=== PATIENT | male | born 1935 | race Caucasian/White ===

== ENCOUNTER 2016-11-18 19:33 | Inpatient (IN) | payer OTHER, MEDICAID ==
--- NOTE | 2016-11-18 19:46 | CPEKG ---
Heart Rate: 62 RR Interval: 968 P-R Interval: 160 QRSD Interval: 82 QT Interval: 456 QTC Interval: 463 P Eros: -34 QRS Eros: 179 T Wave Eros: 63 EKG Severity - ABNORMAL ECG - EKG Impression: SINUS RHYTHM EKG Impression: LOW VOLTAGE IN FRONTAL LEADS EKG Impression: PROBABLE RIGHT VENTRICULAR HYPERTROPHY EKG Impression: similar to previous Electronically Signed By: Baron Bond 18-Nov-2016 19:48:58
[2016-11-18] MEDS ORDERED: IPRATROPIUM/ALBUTEROL 3 ML DEYVIAL IH ONE ×2 (19:53→22:47)
--- NOTE | 2016-11-18 19:53 | EDPHY ---
H & P Time Seen by Provider: 11/18/16 19:38 HPI/ROS: CHIEF COMPLAINT: Fainting spells HISTORY OF PRESENT ILLNESS: Patient is an 80-year-old man who is brought by EMS from [facility] for what are described as fainting spells. Paramedics state that earlier this afternoon he was found to have a low blood glucose of 40 and so they have been treating this throughout the day. It has been in the normal range however over the last few hours he has multiple times become unconscious while lying in bed and been unresponsive for about a minute or 2. No seizure-like activity. No history of seizures. The patient does not remember these episodes and states that he is asymptomatic. He denies having any pain. He denies shortness of breath. He denies nausea vomiting or diarrhea or recent illness. Paramedics state that they did witness 1 of these episodes. His pulse did not change during it. His vital signs remained stable. 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 REVIEW OF SYSTEMS: Constitutional: denies: chills, fever, recent illness, recent injury EENTM: denies: blurred vision, double vision, nose congestion Respiratory: denies: cough, shortness of breath Cardiac: denies: chest pain, irregular heart rate, lightheadedness, palpitations Gastrointestinal/Abdominal: denies: abdominal pain, diarrhea, nausea, vomiting, blood streaked stools Genitourinary: denies: dysuria, frequency, hematuria, pain Musculoskeletal: denies: joint pain, muscle pain Skin: denies: lesions, rash, jaundice, bruising Neurological: denies: headache, numbness, paresthesia, tingling, dizziness, weakness Hematologic/Lymphatic: denies: blood clots, easy bleeding, easy bruising Immunologic/allergic: denies: HIV/AIDS, transplant EXAM: GENERAL: Well-appearing, well-nourished and in no acute distress. Hard of hearing HEAD: Atraumatic, normocephalic. EYES: Pupils equal round and reactive to light, extraocular movements intact, sclera anicteric, conjunctiva are normal. ENT: TMs normal, nares patent, oropharynx clear without exudates. Moist mucous membranes. NECK: Normal range of motion, supple without lymphadenopathy or JVD. LUNGS: Mild rhonchi in left lower lobe posteriorly, wheezing anteriorly. HEART: Regular rate and rhythm without murmurs, rubs or gallops. ABDOMEN: Soft, nontender, normoactive bowel sounds. No guarding, no rebound. No masses appreciated. BACK: No CVA tenderness, no spinal tenderness, step-offs or deformities EXTREMITIES: Left [id number] amputation, no pain or deformity. No significant edema. No rashes or erythema NEUROLOGICAL: Cranial nerves II through XII grossly intact. Normal speech, normal gait. 5/5 strength, normal movement in all extremities, normal sensation PSYCH: Normal mood, normal affect. SKIN: Warm, dry, normal turgor, no visible rashes or lesions. Source: Patient Exam Limitations: No limitations - Personal History Tetanus Vaccine Date: WITHIN LAST 10 YEARS - Medical/Surgical History Hx Asthma: No Hx Chronic Respiratory Disease: No Hx Diabetes: Yes Hx Cardiac Disease: Yes Hx Renal Disease: Yes Hx Cirrhosis: No Hx Alcoholism: No Hx HIV/AIDS: No Hx Splenectomy or Spleen Trauma: No Other PMH: CVA, Angina, COPD, DM, Cataract, Dementia - Family History Significant Family History: No pertinent family hx - Social History Smoking Status: Former smoker Alcohol Use: Sober Drug Use: None Constitutional: Initial Vital Signs Temperature (C) 36.6 C 11/18/16 19:35 Heart Rate 69 11/18/16 19:35 Respiratory Rate 18 11/18/16 19:35 Blood Pressure 113/81 H 11/18/16 19:35 O2 Sat (%) 94 11/18/16 19:35 O2 Delivery Mode Nasal Cannula O2 (L/minute) 2 Allergies/Adverse Reactions: No Known Allergies Allergy (Unverified 11/18/16 20:38) Home Medications: Medication Instructions Recorded ARICEPT 05/03/10 COZAAR 05/03/10 Cartia 05/03/10 GLUCOSAMINE HCL 05/03/10 HUMALOG 05/03/10 IMODIUM A-D 05/03/10 LEXAPRO 05/03/10 Lantus 05/03/10 Lipitor 10 mg 05/03/10 METFORMIN HCL 05/03/10 NEXIUM 05/03/10 Namenda 05/03/10 PERCOCET 2.5-325 MG TABLET 05/03/10 PRESERVISION SOFTGEL 05/03/10 Starkix 05/03/10 Aspirin [Aspirin 81mg] 81 mg PO DAILY 10/15/10 CHOLECALCIFEROL [Vitamin D] 1,000 unit PO 10/15/10 Claritin PRN PRN 10/15/10 DILTIAZEM HCL [Cardizem Cd] 180 mg PO 10/15/10 Gabapentin [Neurontin] 300 mg PO 10/15/10 METOCLOPRAMIDE HCL 10 mg PO PRN PRN 10/15/10 METOPROLOL TARTRATE 25 10/15/10 MULTI-DAY VITAMINS 10/15/10 NITROGLYCERIN 0.4 mg 10/15/10 Oscal D 500 10/15/10 Psyllium Seed [Metamucil] 5.85 gm PO DAILY 10/15/10 VITAMIN B COMPLEX 10/15/10 diphenhydrAMINE [Benadryl] 25 mg PO PRN PRN 10/15/10 Atorvastatin Calcium [Lipitor 40 40 mg PO DAILY 04/20/13 mg (RX)] Clopidogrel Bisulfate [Plavix (RX)] 75 mg PO DAILY 04/20/13 Diltiazem Cd [Cardizem ER 120 MG 240 mg PO DAILY 04/20/13 (RX)] Donepezil HCl 10 mg PO DAILY 04/20/13 ESCITALOPRAM OXALATE [Lexapro] 40 mg PO DAILY 04/20/13 Fish Oil/Dha/Epa [Fish Oil 1,200 2 each PO BID 04/20/13 mg Fish Oil] Furosemide [Lasix 20 MG (RX)] 20 mg PO 04/20/13 Gabapentin 300 mg PO BID 04/20/13 Insulin Glargine,Hum.rec.anlog 100 unit SQ BID 04/20/13 [Lantus] Insulin Lispro [Humalog] 90 - 100 unit SQ TID 04/20/13 Loperamide HCl [Imodium A-D] 2 mg PO TID 04/20/13 Magnesium 250 mg PO DAILY 04/20/13 Memantine HCl [Namenda 10 mg] 10 mg PO BID 04/20/13 Nitroglycerin [Nitrostat 0.4 mg 0.4 mg SL PRN PRN 04/20/13 (RX)] Oxycodone HCl [Oxyir] 5 mg PO Q4 PRN 04/20/13 Pantoprazole Sodium [Protonix 40mg 40 mg PO BID 04/20/13 (RX)] diphenhydrAMINE [Benadryl 50 MG 50 mg PO BID 04/20/13 (OTC)] Calcium Carbonate/Vitamin D3 1 tab PO DAILY10 04/21/13 [Os-Saurabh 500+D Caplet] Cholecalciferol (Vitamin D3) 10,000 - 20,000 unit PO DAILY10 04/21/13 [Vitamin D3] Famotidine [Pepcid 20 MG (OTC)] 20 mg PO DAILY 04/21/13 Gluc HCl/Csa/Hao Hy/Hyalur AC 3 cap PO BID 04/21/13 [Glucosamine Chondroitin Cap] Pharmacy Completed 04/21/13 04/21/13 Reconciled04/2104/21/13 Vit C/Dl-E AC/Lut/Copper/Znox 1 cap PO BID 04/21/13 [Preservision Softgel] Medical Decision Making - Diagnostics EKG Interpretation: An EKG obtained and was read and documented in trace view. Please see trace view for full reading and report. Sinus rhythm, no acute ischemic changes, similar to previous Imaging: X-ray: chest x-ray was obtained. I viewed the images myself on the PACS system. My interpretation of the images is: Left lower lobe infiltrate. The radiologist interpretation is pending. ED Course/Re-evaluation: 8:40 p.m. we discussed the patient's x-ray results. I will admit him for severe sepsis and pneumonia. I have started Levaquin. I discussed the case with Dr. Gunnar Ruffin who agrees. He has no history of CHF according to the medical records or according to the patient. He is not hypotensive or in septic shock. Differential Diagnosis: Partial list of the Differential diagnosis considered include but were not limited to; sepsis, pneumonia, COPD exacerbation and although unlikely based on the history and physical exam, I also considered CHF, acute coronary disease , CVA. Critical Care Time: I spent a total of 35 minutes of critical care time in obtaining history, performing a physical exam, bedside monitoring of interventions, collecting and interpreting tests and discussion with consultants but not including time spent performing procedures. - Data Points Laboratory Results: Laboratory Results 11/18/16 19:51 11/18/16 19:51 11/18/16 11/18/16 20:15 19:51 WBC 8.53 10^3/uL (3.80-9.50) RBC 4.72 10^6/uL (4.40-6.38) Hgb 14.5 g/dL (13.7-17.5) Hct 43.9 % (40.0-51.0) MCV 93.0 fL (81.5-99.8) MCH 30.7 pg (27.9-34.1) MCHC 33.0 g/dL (32.4-36.7) RDW 12.8 % (11.5-15.2) Plt Count 144 L 10^3/uL (150-400) MPV 9.0 fL (8.7-11.7) Neut % (Auto) 84.2 H % (39.3-74.2) Lymph % (Auto) 6.9 L % (15.0-45.0) [place] % (Auto) 7.9 % (4.5-13.0) Eos % (Auto) 0.0 L % (0.6-7.6) Baso % (Auto) 0.4 % (0.3-1.7) Nucleat RBC Rel Count 0.0 % (0.0-0.2) Absolute Neuts (auto) 7.19 H 10^3/uL (1.70-6.50) Absolute Lymphs (auto) 0.59 L 10^3/uL (1.00-3.00) Absolute Monos (auto) 0.67 10^3/uL (0.30-0.80) Absolute Eos (auto) 0.00 L 10^3/uL (0.03-0.40) Absolute Basos (auto) 0.03 10^3/uL (0.02-0.10) Absolute Nucleated RBC 0.00 10^3/uL (0-0.01) Immature Gran % 0.6 % (0.0-1.1) Immature Gran # 0.05 10^3/uL (0.00-0.10) PT 14.7 SEC (12.0-15.0) INR 1.15 (0.83-1.16) APTT 28.7 SEC (23.0-38.0) VBG Lactic Acid 3.3 H mmol/L (0.7-2.1) Sodium 138 mEq/L (134-144) Potassium 4.6 mEq/L (3.5-5.2) Chloride 95 L mEq/L (97-110) Carbon Dioxide 31 mEq/l (22-31) Anion Gap 12 mEq/L (8-16) BUN 28 H mg/dL (7-23) Creatinine 1.6 H mg/dL (0.7-1.3) Estimated GFR 42 Glucose 220 H mg/dL (70-100) Calcium 8.3 L mg/dL (8.5-10.4) Total Bilirubin 0.5 mg/dL (0.1-1.4) Medications Given: Discontinued Medications Albuterol/Ipratropium (Duoneb) 3 ml IH EDNOW ONE Stop: 11/18/16 19:54 Last Admin: 11/18/16 20:16 Dose: 3 ml Sodium Chloride (Ns *For Sepsis Order Set Only*) 2,722 ml IV EDNOW ONE Stop: 11/18/16 20:25 Last Admin: 11/18/16 20:45 Dose: 2,722 ml Departure - Departure Disposition: [facility] Inpatient Acute Clinical Impression: Sepsis Qualifiers: Sepsis type: sepsis due to unspecified organism Qualifier Code: (A41.9) Sepsis , unspecified organism Pneumonia Qualifiers: Pneumonia type: due to unspecified organism Laterality: left Lung location: lower lobe of lung Qualifier Code: (J18.1) Lobar pneumonia, unspecified organism Condition: Fair
[2016-11-18 20:00] LABS: % IMMATURE GRANULYOCYTES 0.6 % (0.0-1.1); ABSOLUTE IMMATURE GRANULOCYTES 0.05 10^3/uL (0.00-0.10); ADD DIFF? NO; ADD MORPH? NO; ADD SCAN? NO; ATYPICAL LYMPHOCYTE FLAG 10 (0-99); FRAGMENT RBC FLAG 0 (0-99); HEMATOCRIT 43.9 % (40.0-51.0); HEMOGLOBIN 14.5 g/dL (13.7-17.5); LEFT SHIFT FLG 0 (0-99); LIPEMIA HEMOLYSIS FLAG 80 (0-99); MEAN CELL HEMOGLOBIN 30.7 pg (27.9-34.1); PLATELET CLUMPS FLAG 0 (0-99); PLATELET COUNT 144 10^3/uL (150-400); RED BLOOD CELL COUNT 4.72 10^6/uL (4.40-6.38); RED CELL DISTRIBUTION WIDTH 12.8 % (11.5-15.2)
[2016-11-18 20:04] LABS: INR 1.15 (0.83-1.16); PROTIME(PATIENT) 14.7 SEC (12.0-15.0)
[2016-11-18 20:05] LABS: ANION GAP 12 mEq/L (8-16); APTT 28.7 SEC (23.0-38.0); BILIRUBIN,TOTAL 0.5 mg/dL (0.1-1.4); CALCIUM 8.3 mg/dL (8.5-10.4); CARBON DIOXIDE 31 mEq/l (22-31); CHLORIDE 95 mEq/L (97-110); CREATININE 1.6 mg/dL (0.7-1.3); GLOMERULAR FILTRATION RATE 42; GLUCOSE 220 mg/dL (70-100); POTASSIUM 4.6 mEq/L (3.5-5.2); SODIUM 138 mEq/L (134-144)
[2016-11-18] MEDS ORDERED: NS 1,000 ML BAG *FOR SEPSIS ORDER SET ONLY IV ONE (20:24)
[2016-11-18 21:09] LABS: COLOR YELLOW; LEUKOCYTE ESTERASE,URINE NEGATIVE (NEGATIVE); NITRITE,URINE NEGATIVE (NEGATIVE)
[2016-11-18 21:16] LABS: MUCUS TRACE /lpf (NONE-1+)
[2016-11-18 21:18] LABS: LACGHOST ORDER
[2016-11-18 21:18] LABS: RBC,URINE NONE SEEN /hpf (0-3)
--- NOTE | 2016-11-18 21:49 | DX ---
Portable Chest November 18, 2016 at 2030 hours Clinical Indications: Shortness of breath in an 80-year-old male; comparison April 23, 2013. Findings: The heart remains enlarged. The pulmonary vascularity is normal. There is prominent elev ation of the right hemidiaphragm. No focal pulmonary consolidation is identified. Pleural surfaces and bony thorax are negative for acute abnormality. Prominent degenerative changes are seen involvin g the left shoulder. Impressions 1. Cardiac enlargement, without pulmonary edema. 2. Other findings, as detailed above, without significant change from 2012.
[2016-11-18] MEDS ORDERED: ONDANSETRON 4 MG/2 ML VIAL IVP PRN (23:22)
[2016-11-18] MEDS ORDERED: ONDANSETRON DISINTEGRATING 4 MG TAB PO PRN (23:22)
[2016-11-18] MEDS ORDERED: oxyCODONE IR 5 MG TAB PO PRN ×2 (23:22→23:26)
[2016-11-18] MEDS ORDERED: ALBUTEROL 3 ML DEYVIAL IH PRN (23:22)
[2016-11-18] MEDS ORDERED: ACETAMINOPHEN 325 MG TAB PO PRN ×2 (23:22→23:26)
[2016-11-18] MEDS ORDERED: D50W 25 GM/50 ML SYR IVP PRN (23:25)
[2016-11-18] MEDS ORDERED: BISACODYL 10 MG SUPP PR PRN (23:26)
[2016-11-18] MEDS ORDERED: SENNOSIDES/DOCUSATE SODIUM TAB PO PRN (23:26)
[2016-11-18] MEDS ORDERED: GUAIFENESIN/DM 10 ML UDCUP PO PRN (23:26)
[2016-11-18] MEDS ORDERED: LORazepam 0.5 MG TAB PO PRN (23:26)
[2016-11-18] MEDS ORDERED: NYSTATIN POWDER 15 GM BTL TP PRN (23:26)
[2016-11-18] MEDS ORDERED: MAGNESIUM HYDROXIDE 30 ML UDCUP PO PRN (23:26)
[2016-11-18] MEDS ORDERED: guaiFENesin 600 MG TAB.ER PO PRN (23:26)
[2016-11-18] MEDS ORDERED: SODIUM CHLORIDE EACHNARE PRN (23:26)
[2016-11-18] MEDS ORDERED: [UNRECOGNIZED DRUG - OTHER] EACHNARE PRN (23:26)
[2016-11-18] MEDS ORDERED: ERGOCALCIFEROL 50,000 I.UNIT CAP PO SCH (23:30)
[2016-11-18] MEDS ORDERED: ATORVASTATIN CALCIUM 20 MG TAB PO SCH (23:30)
[2016-11-18] MEDS ORDERED: INSULIN GLARGINE 100 UNITS/ML SYRINGE SC SCH (23:30)
[2016-11-18] MEDS ORDERED: DONEPEZIL HCL 5 MG TAB PO SCH (23:45)
[2016-11-19] MEDS: CARBOXYMETHYLCELLULOSE 1% 0.4 ML DROPERETTE LEFTEYE SCH ×2 (00:39→08:31)
[2016-11-19] MEDS: ALBUTEROL 3 ML DEYVIAL IH SCH ×2 (00:39→08:31)
[2016-11-19] MEDS: GABAPENTIN 400 MG CAP PO SCH ×2 (00:39→08:32)
[2016-11-19] MEDS ORDERED: IPRATROPIUM/ALBUTEROL 3 ML DEYVIAL IH SCH (06:00)
[2016-11-19] MEDS ORDERED: HEPARIN 5,000 UNIT/0.5 ML SYR SC SCH (06:00)
--- NOTE | 2016-11-19 06:02 | PDGENHP ---
History and Physical - Chief Complaint syncope - History of Present Illness 80 yo M with hx of CVA, CAD and dementia with very poor memory admitted from [place] where report is that he was having episodes of syncope and hypoglycemia. Patient himself does not recall these episodes and has no idea why he is in the hospital. He states he feels fine, denies pain, sob, syncope. He does complain that his bed sore is bothering him but can't tell me more about that. Per report from [facility], he was having low blood sugar throughout the day and multiple episodes of syncope versus unresponsiveness while in bed. He was worked up in the ER and concerns were for pneumonia and sepsis. He was noted to have a productive cough while being evaluated, but was not able to give me any more details about that either. History Information - Allergies/Home Medication List Allergies/Adverse Reactions: No Known Allergies Allergy (Unverified 11/18/16 20:38) Home Medications: Acetaminophen [Tylenol 325mg (*)] 650 mg PO Q4H PRN 11/18/16 [Last Taken Unknown ] Albuterol [Proventil Neb] 3 ml IH Q4H PRN 11/18/16 [Last Taken Unknown] Albuterol [Proventil Neb] 3 ml IH TID 11/18/16 [Last Taken Unknown] Aspirin [Aspirin 81mg (*)] 81 mg PO DAILY 11/18/16 [Last Taken Unknown] Atorvastatin Calcium [Lipitor 20 mg (*)] 20 mg PO HS 11/18/16 [Last Taken Unknown] Bisacodyl [Dulcolax] 10 mg RC DAILY PRN 11/18/16 [Last Taken Unknown] Calcium Carbonate [Tums 500MG (*)] 500 mg PO DAILY 11/18/16 [Last Taken Unknown] Carboxymethylcellulose 1% [Refresh Celluvisc (*)] 2 drops LEFTEYE BID 11/18/16 [ Last Taken Unknown] Clopidogrel Bisulfate [Clopidogrel] 75 mg PO DAILY 11/18/16 [Last Taken Unknown] Diltiazem Cd [Cardizem ER 120 MG (*)] 240 mg PO DAILY 11/18/16 [Last Taken Unknown] Donepezil HCl [Aricept] 10 mg PO HS 11/18/16 [Last Taken Unknown] Ergocalciferol (Vitamin D2) [Vitamin D2] 50,000 unit PO Q30D 11/18/16 [Last Taken 11/09/16] Escitalopram Oxalate [Lexapro] 20 mg PO DAILY 11/18/16 [Last Taken Unknown] Fluticasone Nasal [Flonase Nasal [place] (RX)] 2 sprays NASAL DAILY 11/18/16 [ Last Taken Unknown] Gabapentin [Neurontin 400 MG (*)] 400 mg PO TID 11/18/16 [Last Taken Unknown] Insulin Glargine [Lantus 100 UNITS/ML (*)] 30 units SC HS 11/18/16 [Last Taken Unknown] Insulin Glargine [Lantus 100 UNITS/ML (*)] 65 units SC DAILY 11/18/16 [Last Taken Unknown] Insulin Lispro [humALOG LISPRO 100 units/ml (*)] 20 unit SC TIDMEAL 11/18/16 [ Last Taken Unknown] LORazepam [Ativan (*)] 0.5 mg PO Q6H PRN 11/18/16 [Last Taken Unknown] Lisinopril [Zestril 5 mg (*)] 5 mg PO DAILY 11/18/16 [Last Taken Unknown] Magnesium Hydroxide [Milk of Magnesia] 30 ml PO BID PRN 11/18/16 [Last Taken Unknown] Metoprolol Tartrate [Lopressor 25 mg (*)] 12.5 mg PO BID 11/18/16 [Last Taken Unknown] Miconazole Nitrate [Micatin 2% Cream (*)] 1 nathen TP TID 11/18/16 [Last Taken Unknown] Nitroglycerin [Nitrostat 0.4 mg (*)] 0.4 mg SL Q5M PRN 11/18/16 [Last Taken Unknown] Nystatin Powder [Mycostatin Powder (RX)] 1 nathen TOP BID PRN 11/18/16 [Last Taken Unknown] Nystatin Powder [Mycostatin Powder (RX)] 1 nathen TOP Q24H PRN 11/18/16 [Last Taken Unknown] Omeprazole [Prilosec 20 mg] 20 mg PO DAILY 11/18/16 [Last Taken Unknown] Sennosides/Docusate Sodium [SENEXON-S TABLET] 1 each PO Q12H PRN 11/18/16 [Last Taken Unknown] Sodium Chloride [Saline Nasal Mist] 2 spray EACHNARE QID PRN 11/18/16 [Last Taken Unknown] guaiFENesin [Mucinex 600 MG (*)] 600 mg PO BID PRN 11/18/16 [Last Taken Unknown] guaiFENesin/DEXTROMETHORPHAN [Robitussin Dm Oral Liquid (*)] 15 ml PO Q6H PRN [Last Taken Unknown] oxyCODONE IR [Oxycodone Ir (*)] 20 mg PO Q6H PRN 11/18/16 [Last Taken Unknown] I have personally reviewed and updated: family history, medical history, social history, surgical history - Past Medical History coronary artery disease, CVA (with residual left upper extremity weakness), dementia, diabetes type 2, hypertension, hyperlipidemia Additional medical history: peripheral neuropathy. Charcot foot. hemochromatosis - Surgical History Reports: amputation (left bka for charcot foot) - Family History Positive for: non-pertinent - Social History Smoking Status: Former smoker Alcohol Use: Sober Drug Use: None Additional social history: residing at [facility] Review of Systems ROS: 10pt was reviewed & negative except for what was stated in HPI & below ( limited by patients dementia) Physical Exam Temp Pulse Resp BP Pulse Ox 36.7 C 76 18 136/72 H 94 11/19/16 01:23 11/19/16 04:00 11/19/16 04:00 11/19/16 04:00 11/19/16 04:00 O2 (L/minute) 2 Constitutional: no apparent distress, obese, unkempt Eyes: PERRL, anicteric sclera Ears, Nose, Mouth, Throat: moist mucous membranes, hearing normal Cardiovascular: regular rate and rhythym, no murmur, rub, or gallop, No edema Respiratory: no respiratory distress, inspiratory crackles, bronchial breath sounds Gastrointestinal: normoactive bowel sounds, soft, non-tender abdomen Skin: warm, normal color Musculoskeletal: no muscle tenderness, generalized weakness Neurologic: CN II-XII Intact, No AAOx3 Psychiatric: interacting appropriately, not anxious, poor memory Lab Data & Imaging Review 11/18/16 19:51 11/18/16 19:51 WBC 8.53 10^3/uL (3.80-9.50) 11/18/16 19:51 RBC 4.72 10^6/uL (4.40-6.38) 11/18/16 19:51 Hgb 14.5 g/dL (13.7-17.5) 11/18/16 19:51 Hct 43.9 % (40.0-51.0) 11/18/16 19:51 MCV 93.0 fL (81.5-99.8) 11/18/16 19:51 MCH 30.7 pg (27.9-34.1) 11/18/16 19:51 MCHC 33.0 g/dL (32.4-36.7) 11/18/16 19:51 RDW 12.8 % (11.5-15.2) 11/18/16 19:51 Plt Count 144 10^3/uL (150-400) L 11/18/16 19:51 MPV 9.0 fL (8.7-11.7) 11/18/16 19:51 Neut % (Auto) 84.2 % (39.3-74.2) H 11/18/16 19:51 Lymph % (Auto) 6.9 % (15.0-45.0) L 11/18/16 19:51 [place] % (Auto) 7.9 % (4.5-13.0) 11/18/16 19:51 Eos % (Auto) 0.0 % (0.6-7.6) L 11/18/16 19:51 Baso % (Auto) 0.4 % (0.3-1.7) 11/18/16 19:51 Nucleat RBC Rel Count 0.0 % (0.0-0.2) 11/18/16 19:51 Absolute Neuts (auto) 7.19 10^3/uL (1.70-6.50) H 11/18/16 19:51 Absolute Lymphs (auto) 0.59 10^3/uL (1.00-3.00) L 11/18/16 19:51 Absolute Monos (auto) 0.67 10^3/uL (0.30-0.80) 11/18/16 19:51 Absolute Eos (auto) 0.00 10^3/uL (0.03-0.40) L 11/18/16 19:51 Absolute Basos (auto) 0.03 10^3/uL (0.02-0.10) 11/18/16 19:51 Absolute Nucleated RBC 0.00 10^3/uL (0-0.01) 11/18/16 19:51 Immature Gran % 0.6 % (0.0-1.1) 11/18/16 19:51 Immature Gran # 0.05 10^3/uL (0.00-0.10) 11/18/16 19:51 PT 14.7 SEC (12.0-15.0) 11/18/16 19:51 INR 1.15 (0.83-1.16) 11/18/16 19:51 APTT 28.7 SEC (23.0-38.0) 11/18/16 19:51 VBG Lactic Acid 2.3 mmol/L (0.7-2.1) H 11/18/16 21:31 Sodium 138 mEq/L (134-144) 11/18/16 19:51 Potassium 4.6 mEq/L (3.5-5.2) 11/18/16 19:51 Chloride 95 mEq/L (97-110) L 11/18/16 19:51 Carbon Dioxide 31 mEq/l (22-31) 11/18/16 19:51 Anion Gap 12 mEq/L (8-16) 11/18/16 19:51 BUN 28 mg/dL (7-23) H 11/18/16 19:51 Creatinine 1.6 mg/dL (0.7-1.3) H 11/18/16 19:51 Estimated GFR 42 11/18/16 19:51 Glucose 220 mg/dL (70-100) H 11/18/16 19:51 POC Glucose 175 mg/dL (70-100) H 11/18/16 23:56 Calcium 8.3 mg/dL (8.5-10.4) L 11/18/16 19:51 Total Bilirubin 0.5 mg/dL (0.1-1.4) 11/18/16 19:51 Urine Color YELLOW 11/18/16 21:00 Urine Appearance HAZY 11/18/16 21:00 Urine pH 5.0 (5.0-7.5) 11/18/16 21:00 Ur Specific [place] 1.021 (1.002-1.030) 11/18/16 21:00 Urine Protein 1+ (NEGATIVE) H 11/18/16 21:00 Urine Ketones NEGATIVE (NEGATIVE) 11/18/16 21:00 Urine Blood NEGATIVE (NEGATIVE) 11/18/16 21:00 Urine Nitrate NEGATIVE (NEGATIVE) 11/18/16 21:00 Urine Bilirubin NEGATIVE (NEGATIVE) 11/18/16 21:00 Urine Urobilinogen NEGATIVE EU (0.2-1.0) 11/18/16 21:00 Ur Leukocyte Esterase NEGATIVE (NEGATIVE) 11/18/16 21:00 Urine RBC NONE SEEN /hpf (0-3) 11/18/16 21:00 Urine WBC 1-3 /hpf (0-3) 11/18/16 21:00 Ur Epithelial Cells TRACE /lpf (NONE-1+) 11/18/16 21:00 Urine Mucus TRACE /lpf (NONE-1+) 11/18/16 21:00 Urine Glucose NEGATIVE (NEGATIVE) 11/18/16 21:00 Visualized and Interpreted Chest x-ray results: Yes Chest X-Ray results: no infiltrate, other (elevated right hemidiaphragm) EKG Interpretation: Positive for: normal sinsus rhythm EKG additional interpertation: low voltage, no significant change Assessment & Plan Assessment: 80 yo M with PMH of CVA, CAD, DM admitted with syncope versus near syncope and possible pneumonia # near syncope versus syncope: hx obtained per printer machine report as patient himself has no recollection of this happening. He has not had further episodes since arrival. Monitoring on tele, serial trops, will get echo in am. Reported hypoglycemia at [place] could be etiology, so far no hypoglycemia here. # acute bronchitis versus pneumonia: pt w/productive cough in setting of above, no clear infiltrate on cxr however limited by patients body habitus and poor inspiratory effort. Nebs to be continued, will continue levofloxacin and pulmonary toilet. Would like 2 view cxr for further evaluation, but unclear if his strength would permit # pressure ulcer: was not personally able to evaluate given patients very limited mobility and safety issues, have asked for wound care to evaluate and tx # DM2: with BS in the 200 range since arrival, reports of hypoglycemia at [place] as above. Patient on fairly high doses of glargine as an OP, will hold those for now and monitor on SS. Will need to resume glargine likely today however, want to monitor his trend before choosing a dose (has been on a total of 95 units prior) # dementia: this is quite advanced but seems to be at baseline # hx of CVA, HTN, HLD, peripheral neuropathy, Charcot foot # hemochromatosis: will check lfts # DNR # IP status, given multiple active medical issues will likely need > 48 hours stay for eval/mgmt of above patient new to my care. old records reviewed and summarized as above. Care plan reviewed with ER doctor.
[2016-11-19 06:15] LABS: % IMMATURE GRANULYOCYTES 0.4 % (0.0-1.1); ABSOLUTE IMMATURE GRANULOCYTES 0.02 10^3/uL (0.00-0.10); ADD DIFF? NO; ADD MORPH? NO; ADD SCAN? NO; ATYPICAL LYMPHOCYTE FLAG 20 (0-99); FRAGMENT RBC FLAG 0 (0-99); HEMATOCRIT 32.5 % (40.0-51.0); LEFT SHIFT FLG 0 (0-99); LIPEMIA HEMOLYSIS FLAG 90 (0-99); MEAN CELL HEMOGLOBIN 31.4 pg (27.9-34.1); MEAN CELL HEMOGLOBIN CONCENTR. 33.8 g/dL (32.4-36.7); MEAN CELL VOLUME 92.9 fL (81.5-99.8); MEAN PLATELET VOLUME 9.2 fL (8.7-11.7); PLATELET CLUMPS FLAG 0 (0-99); PLATELET COUNT 102 10^3/uL (150-400); RED CELL DISTRIBUTION WIDTH 12.8 % (11.5-15.2)
[2016-11-19 06:32] LABS: ALANINE AMINOTRANSFERASE 27 IU/L (21-72); ALBUMIN 2.5 g/dL (3.5-5.0); ALKALINE PHOSPHATASE 89 IU/L (38-126); ANION GAP 7 mEq/L (8-16); ASPARTATE AMINOTRANSFERASE 19 IU/L (17-59); BILIRUBIN,TOTAL 0.5 mg/dL (0.1-1.4); BILIRUBIN-CONJUGATED 0.2 mg/dL (0.0-0.5); BILIRUBIN-UNCONJUGATED 0.3 mg/dL (0.0-1.1); CALCIUM 7.5 mg/dL (8.5-10.4); CARBON DIOXIDE 29 mEq/l (22-31); CHLORIDE 105 mEq/L (97-110); CREATININE 1.1 mg/dL (0.7-1.3); GLOMERULAR FILTRATION RATE > 60; GLUCOSE 80 mg/dL (70-100); POTASSIUM 4.5 mEq/L (3.5-5.2); SODIUM 141 mEq/L (134-144); TOTAL PROTEIN 4.9 g/dL (6.3-8.2)
[2016-11-19 06:44] LABS: TROPONIN I 0.014 ng/mL (0-0.034)
[2016-11-19] MEDS ORDERED: INSULIN LISPRO 100 UNIT/ML SC SCH (08:00)
[2016-11-19] MEDS ORDERED: CARBOXYMETHYLCELLULOSE 1% 0.4 ML DROPERETTE LEFTEYE SCH (09:00)
[2016-11-19] MEDS ORDERED: MICONAZOLE NITRATE 28 GM CRTUBE TP SCH (09:00)
[2016-11-19] MEDS ORDERED: NON-FORMULARY NEW DRUG (Omeprazole [Prilosec 20 Mg] 20 MG) PO SCH (09:00)
[2016-11-19] MEDS ORDERED: FLUTICASONE NASAL 120 SPRAYS/16 GM MDI EACHNARE SCH ×2 (09:00→14:45)
[2016-11-19] MEDS ORDERED: CLOPIDOGREL BISULFATE 75 MG TAB PO SCH (09:00)
[2016-11-19] MEDS ORDERED: METOPROLOL TARTRATE 25 MG TAB PO SCH (09:00)
[2016-11-19] MEDS ORDERED: INSULIN GLARGINE 100 UNITS/ML SYRINGE SC SCH (09:00)
[2016-11-19] MEDS ORDERED: DILTIAZEM CD 120 MG CAP PO SCH (09:00)
[2016-11-19] MEDS ORDERED: ASPIRIN 81 MG CHEWABLE TAB PO SCH (09:00)
[2016-11-19] MEDS ORDERED: ESCITALOPRAM OXALATE 10 MG TAB PO SCH (09:00)
[2016-11-19] MEDS ORDERED: CALCIUM CARBONATE 500 MG CHEWABLE TAB PO SCH (09:00)
[2016-11-19] MEDS ORDERED: NON-FORMULARY NEW DRUG (Escitalopram Oxalate [Lexapro] 20 MG) PO SCH (09:00)
[2016-11-19] MEDS ORDERED: PANTOPRAZOLE SODIUM 40 MG TAB PO SCH (09:00)
[2016-11-19 09:06] LABS: % IMMATURE GRANULYOCYTES 0.6 % (0.0-1.1); ABSOLUTE IMMATURE GRANULOCYTES 0.03 10^3/uL (0.00-0.10); ADD DIFF? NO; ADD MORPH? NO; ADD SCAN? NO; ATYPICAL LYMPHOCYTE FLAG 40 (0-99); FRAGMENT RBC FLAG 0 (0-99); HEMATOCRIT 36.6 % (40.0-51.0); HEMOGLOBIN 12.7 g/dL (13.7-17.5); LEFT SHIFT FLG 0 (0-99); LIPEMIA HEMOLYSIS FLAG 90 (0-99); MEAN CELL HEMOGLOBIN 31.7 pg (27.9-34.1); MEAN CELL HEMOGLOBIN CONCENTR. 34.7 g/dL (32.4-36.7); MEAN CELL VOLUME 91.3 fL (81.5-99.8); MEAN PLATELET VOLUME 9.1 fL (8.7-11.7); PLATELET CLUMPS FLAG 10 (0-99); PLATELET COUNT 116 10^3/uL (150-400); RED BLOOD CELL COUNT 4.01 10^6/uL (4.40-6.38); RED CELL DISTRIBUTION WIDTH 12.8 % (11.5-15.2)
[2016-11-19] MEDS: INSULIN LISPRO 100 UNIT/ML SC SCH ×2 (09:39→11:10)
[2016-11-19 11:03] VITALS: RESP 18
--- NOTE | 2016-11-19 13:21 | PDIAF ---
- Diagnosis Diagnosis: hypoglycemia Code Status: Do Not Resuscitate - Medication Management Discharge Medications: Medications to Continue on Transfer Acetaminophen [Tylenol 325mg (*)] 650 mg PO Q4H PRN 11/18/16 [Last Taken Unknown ] Albuterol [Proventil Neb] 3 ml IH Q4H PRN 11/18/16 [Last Taken Unknown] Albuterol [Proventil Neb] 3 ml IH TID 11/18/16 [Last Taken Unknown] Aspirin [Aspirin 81mg (*)] 81 mg PO DAILY 11/18/16 [Last Taken Unknown] Atorvastatin Calcium [Lipitor 20 mg (*)] 20 mg PO HS 11/18/16 [Last Taken Unknown] Bisacodyl [Dulcolax] 10 mg RC DAILY PRN 11/18/16 [Last Taken Unknown] Calcium Carbonate [Tums 500MG (*)] 500 mg PO DAILY 11/18/16 [Last Taken Unknown] Carboxymethylcellulose 1% [Refresh Celluvisc (*)] 2 drops LEFTEYE BID 11/18/16 [ Last Taken Unknown] Clopidogrel Bisulfate [Clopidogrel] 75 mg PO DAILY 11/18/16 [Last Taken Unknown] Diltiazem Cd [Cardizem ER 120 MG (*)] 240 mg PO DAILY 11/18/16 [Last Taken Unknown] Donepezil HCl [Aricept] 10 mg PO HS 11/18/16 [Last Taken Unknown] Ergocalciferol (Vitamin D2) [Vitamin D2] 50,000 unit PO Q30D 11/18/16 [Last Taken 11/09/16] Escitalopram Oxalate [Lexapro] 20 mg PO DAILY 11/18/16 [Last Taken Unknown] Fluticasone Nasal [Flonase Nasal [place]] 2 sprays NASAL DAILY 11/18/16 [Last Taken Unknown] Gabapentin [Neurontin 400 MG (*)] 400 mg PO TID 11/18/16 [Last Taken Unknown] Insulin Glargine [Lantus 100 UNITS/ML (*)] 30 units SC HS 11/18/16 [Last Taken Unknown] Insulin Lispro [humALOG LISPRO 100 units/ml (*)] 20 unit SC TIDMEAL 11/18/16 [ Last Taken Unknown] LORazepam [Ativan (*)] 0.5 mg PO Q6H PRN 11/18/16 [Last Taken Unknown] Lisinopril [Zestril 5 mg (*)] 5 mg PO DAILY 11/18/16 [Last Taken Unknown] Magnesium Hydroxide [Milk of Magnesia] 30 ml PO BID PRN 11/18/16 [Last Taken Unknown] Metoprolol Tartrate [Lopressor 25 mg (*)] 12.5 mg PO BID 11/18/16 [Last Taken Unknown] Miconazole Nitrate [Micatin 2% Cream (*)] 1 nathen TP TID 11/18/16 [Last Taken Unknown] Nitroglycerin [Nitrostat 0.4 mg (*)] 0.4 mg SL Q5M PRN 11/18/16 [Last Taken Unknown] Nystatin Powder [Mycostatin Powder] 1 nathen TOP BID PRN 11/18/16 [Last Taken Unknown] Nystatin Powder [Mycostatin Powder] 1 nathen TOP Q24H PRN 11/18/16 [Last Taken Unknown] Omeprazole [Prilosec 20 mg] 20 mg PO DAILY 11/18/16 [Last Taken Unknown] Sennosides/Docusate Sodium [SENEXON-S TABLET] 1 each PO Q12H PRN 11/18/16 [Last Taken Unknown] Sodium Chloride [Saline Nasal Mist] 2 spray EACHNARE QID PRN 11/18/16 [Last Taken Unknown] guaiFENesin [Mucinex 600 MG (*)] 600 mg PO BID PRN 11/18/16 [Last Taken Unknown] guaiFENesin/DEXTROMETHORPHAN [Robitussin Dm Oral Liquid (*)] 15 ml PO Q6H PRN [Last Taken Unknown] oxyCODONE IR [Oxycodone Ir (*)] 20 mg PO Q6H PRN 11/18/16 [Last Taken Unknown] Insulin Glargine [Lantus 100 UNITS/ML (*)] 60 unit SC DAILY #0 ml 11/19/16 [ Last Taken Unknown] Discharge Medications: Refer to the Discharge Home Medication list for PRN reason. - Orders Diet Recommendation: ADA 1800 consistent carb Diet Texture: Regular Texture Diet - Follow Up Care Current Providers and Referrals: IN STATE,. [Primary Care Provider] - As per Instructions
--- NOTE | 2016-11-19 13:31 | GDS ---
[f rep st] DISCHARGE SUMMARY DISCHARGE DIAGNOSES: 1. Syncope versus presyncope, possibly due to hypoglycemia. 2. Acute bronchitis without evidence for pneumonia. 3. Pressure ulcer. 4. Insulin-dependent type 2 diabetes mellitus. 5. Dementia. 6. History of cerebrovascular accident. 7. History of hypertension. 8. History of hyperlipidemia. 9. History of hemochromatosis. 10. DNR status. HOSPITAL COURSE AND STAY BY PROBLEM: Syncope versus presyncope: The [facility] after he reportedly had some fainting spells. Initially, the ER thought he may be septic with a possible pneumonia. Further diagnostic workup, including a chest x- ray, did not reveal a pneumonia. His white blood cell count is not elevated. At the time of my exam , the patient did not have any signs or symptoms of pneumonia or acute infection. I suspect that the patient's symptoms could be from hypoglycemia. He is on a high dose of glargine a t home. For now, will plan on discharging him back to the [facility] on a lower dose of glargine. Please refer to the discharge medication reconciliation for further details. The patient's symptoms may also be accounted for by some mild dehydration. When he presented, his creatinine was 1.6, whic h has gone down to 1.1 with some hydration. PHYSICAL EXAM: VITAL SIGNS: On day of discharge, blood pressure 172/81, pulse 75, respiratory rate 16, O2 saturation 96% on 2 L. Temperature afebrile. GENERAL: No acute distress. HEART: S1, S2. LUNGS: Clear. ABDOMEN: Soft. EXTREMITIES: No edema. PERTINENT LABS AND STUDIES: Chest x-ray done 11/18/2016 was negative for pneumonia. Influenza A and B were negative. DISCHARGE MEDICATIONS: Please refer to discharge medication reconciliation in [facility] for full deta ils. Below is a preliminary list. Home medications that have been changed: He is to continue his glargine 30 units at bedtime. I decr eased his morning glargine dose from 65 units to 60 units. He will need close monitoring of his bloo d sugars because he may require further titration of his insulin. All other home medications were continued at his usual home dosages. DISCHARGE INSTRUCTIONS: The [facility] where he will need close monitoring of his blood sugars and close titration of his insulin. /[id number]/MODL
[2016-11-19 14:00] VITALS: BP 145/76; PULSE 81; TEMP 97.2; O2SAT 95
--- NOTE | 2016-11-19 14:13 | ECHO ---
[id number] + + [address] : : [place] [address] : : [phone] + + Adult Echocardiographic Report + --+ :Name: VASU ROMERO WStudy Date: 11/19/2016 08:19 AM : : Hospital Admission Number: [id number] Location: ER: :: 1935 Gender: Male Height: 71 in : :Age: 80 yrs Race: WH,White Weight: 200 lb : :Reason For Study: Syncope : : BSA: 2.1 meters2 : + --+ MMode/2D Measurements & Calculations IVSd: 0.99 cm LVIDd: 5.9 cm EDV(Teich): Ao root diam: 174.9 ml 3.8 cm LA dimension: 4.3 cm LVLd ap4: 8.7 cm SV(MOD-sp4): EDV(MOD-sp4): 58.0 ml 79.0 ml LVLs ap4: 6.4 cm ESV(MOD-sp4): 21.0 ml EF(MOD-sp4): 73.4 % Normal Measurement Values: + + :LVIDd (3.5-5.7cm) IVSd (0.6-1.1cm) LVPWd (0.6-1.1cm) Aortic Root (2.0-3.7cm)Left Atrium (1.5-4.0cm): :LV Vol(d) (76-115ml) LV Vol(s) (29-48ml) Ejec Fraction (50-65%)PV Tex (0.6- 1.2m/s) TV Tex (0.4-1.0m/s) : :MV E Tex (0.8-1.0m/s)MV A Tex (0.3-1.0m/s)LVOT Tex (0.7-1.2m/s) Asc Ao Tex ( 0.9-1.8m/s) : + + Doppler Measurements & Calculations MV E max tex: 65.6 cm/sec Ao V2 max: 161.0 cm/sec MV A max tex: 80.5 cm/sec Ao max P.4 mmHg MV E/A: 0.81 Ao mean P.0 mmHg Ao V2 mean: 116.0 cm/sec Ao V2 VTI: 31.6 cm Left Ventricle The left ventricle is normal in size. There is normal left ventricular wall thickness. The left ventricle is hyperdynamic. E/a wave reversal. Ejection Fraction = 70-75%. No regional wall motion abnormalities noted. Right Ventricle A moderator band is seen in the right ventricle. The right ventricle is mildly dilated. Atria The left atrial size is normal. Right atrial size is normal. The interatrial septum is intact with no evidence for an atrial septal defect. Mitral Valve The mitral valve is normal in structure and function. There is no evidence of mitral valve prolapse. There is no mitral valve stenosis. There is trace mitral regurgitation. Tricuspid Valve Normal tricuspid valve. There is trace tricuspid regurgitation. Aortic Valve The aortic valve is trileaflet. The aortic valve opens well. Mild AO calcification. There is no aortic stenosis. There is no aortic insufficiency. Pulmonic Valve The pulmonic valve is normal in structure and function. There is no pulmonic valvular regurgitation. Great Vessels The aortic root is normal size. Pericardium/Pleural There is no pericardial effusion. There is a fat pad seen. Conclusion A complete two-dimensional transthoracic echocardiogram was performed (2D, M-mode, Doppler and color flow Doppler). The left ventricle is hyperdynamic. E/a wave reversal. Ejection Fraction = 70-75%. The right ventricle is mildly dilated. A moderator band is seen in the right ventricle. There is trace mitral regurgitation. There is trace tricuspid regurgitation. Mild AO calcification. There is a fat pad seen. Final Reading Physician: Soledad Madrigal signed on 11/19/2016 02:12 PM Ordering Physician: Michaela aCballero Performed By: Michelle Kelsey RDCS
[2016-11-19] MEDS ORDERED: NYSTATIN POWDER 15 GM BTL TP PRN (15:19)
[2016-11-19] MEDS ORDERED: SODIUM CHLORIDE EACHNARE PRN (15:19)
[2016-11-19] MEDS ORDERED: [UNRECOGNIZED DRUG - OTHER] EACHNARE PRN (15:19)
[2016-11-19] MEDS ORDERED: NON-FORMULARY NEW DRUG (Donepezil Hcl [Aricept] 10 MG) PO SCH (21:00)
[2016-11-19] MEDS ORDERED: ATORVASTATIN CALCIUM 20 MG TAB PO SCH (21:00)
== END 2016-11-19 14:41 | disposition home or self-care (01) | DRG 639 ==
LOC: EDUNIT# → UNDOADMOB 20:44 → OBSVTOIN 23:26 → INTOOBSV 23:26
PROVIDERS: ADMIT Student in an Organized Health Care Education/Training Program; ATTEND Student in an Organized Health Care Education/Training Program
DX: E11.649 Type 2 diabetes mellitus with hypoglycemia without coma (principal); J20.9 Acute bronchitis, unspecified; L89.90 Pressure ulcer of unspecified site, unspecified stage; E11.40 Type 2 diabetes mellitus with diabetic neuropathy, unspecified; G62.9 Polyneuropathy, unspecified; I25.10 Atherosclerotic heart disease of native coronary artery without angina pectoris; F03.90 Unspecified dementia, unspecified severity, without behavioral disturbance, psychotic disturbance, mood disturbance, and anxiety; Z79.4 Long term (current) use of insulin; Z89.512 Acquired absence of left leg below knee; Z87.891 Personal history of nicotine dependence; Z66 Do not resuscitate; Z86.73 Personal history of transient ischemic attack (TIA), and cerebral infarction without residual deficits
CPT/HCPCS: 82947-QW; 96365; J1815; J1956